=== PATIENT | female | born 1980 | race Caucasian/White ===

== ENCOUNTER → 2017-08-11 | Outpatient (CLI) | payer BC ==
[~2017-08-11] MED LIST: ACET1TAB43 PO; HYDR-3720 PO; IBP800T PO; IBUP-1773 PO; PREN1TAB39 PO
--- NOTE | 2017-08-11 16:34 | Diagnostic Imaging Report ---
INDICATION: survey. TECHNIQUE: Multiple real-time grayscale images were obtained over the gravid uterus. COMPARISON: None FINDINGS: There is a single live fetus in a cephalic presentation. Cervical length is 4.5 cm. The placenta is posterior. heart rate was recorded at 147 beats per minute. The amniotic fluid volume is normal. survey demonstrates kidneys and stomach to be unremarkable. The bladder was not well seen on today's study. brain is unremarkable. There is a four-chamber heart. The spine is unremarkable. Cord insertion is unremarkable. Three-vessel cord was not well seen. Biometrical measurements are as follows: Biparietal 4.63 cm, age 20 weeks 0 days. Head circumference 16.96 cm, age 19 weeks 5 days. Abdominal circumference 14.61 cm, age 20 weeks 0 days. Femur length 2.94 cm, age 19 weeks 1 days. Sonographic estimate age: 19 weeks 5 days. Sonographic estimated date of delivery: 12/31/2017. Estimated Weight: 298 gm (+/- 44 gm). LMP percentile: 22%. heart rate: 147 beats per minute. number: 1 of 1. IMPRESSION: Single live IUP at 19 weeks 5 days gestational age. The estimated date of confinement sonographically is 12/31/2017. Note is made that the bladder and three-vessel cord were not well seen on today's study and followup could be performed. Dictated by: Dictated on workstation # [id number]
== END ==
LOC: RAD 15:40
PROVIDERS: ATTEND Obstetrics & Gynecology
DX: Z36.89 Encounter for other specified antenatal screening (principal); Z3A.19 19 weeks gestation of pregnancy
CPT/HCPCS: 76805

== ENCOUNTER 2017-12-25 08:25 | Inpatient (IN) | payer BC ==
[~2017-12-25] VITALS: Ht 167.6 cm; Wt 77.7 kg
[2017-12-25] VITALS (37 sets, daily range): BP systolic 92–144; BP diastolic 57–86
[2017-12-25] MEDS ORDERED: D5 LR IV SOLUTION 1,000 ML IV SCH (08:59)
[2017-12-25] MEDS ORDERED: MINERAL OIL CONCENTRATE 99.9% 15 ML UDC TOP PRN (09:00)
--- OUTSIDE RECORDS SUMMARY | 2017-12-25 09:00 | XMS REPORT ---
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 Name Role Phone HERNANDEZKIMBER MorganELE Unavailable PROBLEMS Unknown Problems ALLERGIES No Known Allergies ENCOUNTERS Encounter Location Date Diagnosis [facility] [address] [facility] [id number] [place] [address] Oct, Acute nonseasonal allergic rhinitis due to pollen J30.1 IMMUNIZATIONS Vaccine Route Administration Date Status DEXAMETHASONE 4MG/ML (PER 1 MG) IM Intramuscular Nov 01, 2016 Administered DEPO MEDROL 40 MG/ML IM Intramuscular Nov 01, 2016 Administered SOCIAL HISTORY Never Assessed REASON FOR VISIT cough, sinus drainage, sinus pressure. been sick for 3 days. [email or web address] PLAN OF CARE Activity Details Follow Up prn Reason: VITAL SIGNS Height 66 in 2016-11-01 Weight 133.4 lbs 2016-11-01 Temperature 98.0 degrees Fahrenheit 2016-11-01 Heart Rate 78 bpm 2016-11-01 Respiratory Rate 20 2016-11-01 BMI 21.53 kg/m2 2016-11-01 Blood pressure systolic 118 mmHg 2016-11-01 Blood pressure diastolic 74 mmHg 2016-11-01 MEDICATIONS Medication Instructions Dosage Frequency Start Date End Date Duration Status Fluticasone Propionate 50 MCG/ACT Nasally Once a day 1 spray in each nostril 24h Oct, 30 day(s) Active Cetirizine HCl 10 MG Orally Once a day 1 tablet 24h Active Ibuprofen 600 MG Orally Three times a day 1 tablet with food or milk 8h Active RESULTS No Results PROCEDURES Procedure Date Ordered Result Body Site DEPO MEDROL 40 MG/ML Nov 01, 2016 DEXAMETHASONE 4MG/ML (PER 1 MG) Nov 01, 2016 THER/PROPH/DIAG INJ, SC/IM Nov 01, 2016 INSTRUCTIONS MEDICATIONS ADMINISTERED No Known Medications
[2017-12-25 09:26] LABS: BASOPHILS % (AUTO) 0 % (0-10); EOSINOPHILS # (AUTO) 0.1 10^3/uL (0.0-0.3); EOSINOPHILS % (AUTO) 1 % (0-10); HEMATOCRIT 36 % (35-52); HEMOGLOBIN 12.4 G/DL (11.5-16.0); LYMPHOCYTES # (AUTO) 2.4 X 10^3 (1.0-4.0); LYMPHOCYTES % (AUTO) 24 % (12-44); MEAN CORPUSCULAR HEMOGLOBIN 30 PG (25-34); MEAN CORPUSCULAR HGB CONC 34 G/DL (32-36); MEAN CORPUSCULAR VOLUME 88 FL (80-99); MEAN PLATELET VOLUME 10.5 FL (7.4-10.4); MONOCYTES # (AUTO) 0.7 X 10^3 (0.0-1.0); MONOCYTES % (AUTO) 7 % (0-12); NEUTROPHILS # (AUTO) 6.7 X 10^3 (1.8-7.8); NEUTROPHILS % (AUTO) 68 % (42-75); PLATELET COUNT 204 10^3/uL (130-400); RED BLOOD COUNT 4.11 10^6/uL (4.35-5.85); WHITE BLOOD COUNT 9.9 10^3/uL (4.3-11.0)
[2017-12-25] MEDS ORDERED: FLU QUADRIvalent (5+ YOA) 2018-2019 (AFLURIA) 0.5 ML IM ONE (10:15)
[2017-12-25] MEDS ORDERED: SUFENTA 0.6MCG/ML BUPIVA 0.125 100 ML ONE (11:40)
[2017-12-25] MEDS ORDERED: LIDOCAINE PF 2% 5 ML (XYLOCAINE) VIAL ONE (12:16)
[2017-12-25] MEDS ORDERED: BUPIVACAINE 0.5% 30 ML (SENSORCAINE) VIAL ONE (12:17)
[2017-12-25] MEDS ORDERED: fentaNYL INJECTION 100 MCG/2 ML AMP ONE (12:17)
[2017-12-25] MEDS ORDERED: LACTATED RINGERS 1,000 ML IV ONE (12:57)
[2017-12-25] MEDS ORDERED: CATHETER FLUSH 10 ML SYR IV PRN (13:00)
[2017-12-25] MEDS ORDERED: ONDANSETRON 4 MG/2 ML (SDV) Z0FRAN IV PRN (13:00)
[2017-12-25] MEDS ORDERED: diphenhydrAMINE 50 MG/ML INJ (BENADRYL) IV PRN (13:00)
[2017-12-25] MEDS ORDERED: EPIDURAL (SUFENTA 0.6MCG/ML BUPIVA 0.125%) 100 ML BAG EPI SCH (13:00)
[2017-12-25] MEDS ORDERED: NALOXONE 0.4 MG/ML 1 ML (NARCAN) VIAL IV PRN (13:00)
[2017-12-25] MEDS ORDERED: CALCIUM CARBONATE 500 MG (TUMS) TAB.CHEW PO PRN (14:00)
[2017-12-25] MEDS ORDERED: CATHETER FLUSH 10 ML SYR IV SCH ×2 (14:00→22:00)
[2017-12-25] MEDS ORDERED: LIDOCAINE/EPI 2% 1:200,00 (XYLOCAINE) 10 ML VIAL ONE (14:52)
[2017-12-25] MEDS ORDERED: OXYTOCIN/NORMAL SALINE 500 ML IV ONE (15:08)
[2017-12-25] MEDS ORDERED: OXYTOCIN/NORMAL SALINE 500 ML IV SCH (17:03)
[2017-12-25] MEDS ORDERED: ACETAMINOPHEN 500 MG TAB (TYLENOL) PO PRN (17:15)
[2017-12-25] MEDS ORDERED: BENZOCAINE/MENTHOL (DERMOPLAST) 56 ML CAN TP PRN (17:15)
[2017-12-25] MEDS ORDERED: WITCH HAZEL(TUCKS) 40 EA JAR TOP PRN (17:15)
[2017-12-25] MEDS ORDERED: MEASLES,MUMPS,RUBELLA 1 EA INJ SQ ONE (17:15)
[2017-12-25] MEDS ORDERED: TETANUS,DIPTH,PERTUSS P/F (BOOSTRIX) 0.5 ML VIAL IM ONE (17:15)
--- NOTE | 2017-12-25 17:16 | OB Labor & Delivery Record ---
Vag Delivery Note Vag Delivery Note Date of Delivery: 12/25/17 Preoperative Diagnosis: Cynthia San is a 37 /Para 5 /3 , Gestational Age 39 3/7 weeks for social induction Postoperative Diagnosis: Same Surgeon: STEFANIE DE Anesthesia: epidural Delivery Type: Findings: Viable female , apgars 8/9, weight 6#15oz Lacerations: superficial abrasion Intact placenta with 3 vessel cord. No nuchal cord, body cord or shoulder dystocia Estimated Blood Loss: 100 ml Complications: None Condition: Stable Description of Procedure: The patient is a 37 /Para 5 /3 ,Gestational Age 39 3/7 weeks for social induction. She was admitted and informed consent was obtained. Her labor course was remarkable for [AROM. She progressed to complete dilatation and began to push. She was then set up for delivery. The infant's head was delivered atraumatically in the DIOR with compound hand position. The shoulders and remainder of the infant's body were then delivered without difficulty. Upon delivery, the head was held below the level of the perineum and the mouth and nares were bulb suctioned. The cord was doubly clamped and cut and the was handed off to the pediatric staff. An intact placenta with 3-vessel cord delivered via [place] and there was found to be minimal bleeding.~ Vigorous fundal massage was performed and the fundus was found to be firm. IV oxytocin was given. Examination of the vagina and perineum revealed no laceration. Following the delivery, sponge, instrument and needle counts were correct. Mom and baby were both in stable condition in the labor suite. Vitals - Labs Vital Signs - I&O Vital Signs Date Time Temp Pulse Resp B/P (MAP) Pulse Ox O2 Delivery O2 Flow Rate FiO2 12/25/17 15:30 63 121/75 (90) Room Air 12/25/17 15:15 64 116/61 (79) Room Air 12/25/17 15:00 98.1 64 129/76 (93) Room Air 12/25/17 14:45 68 18 138/75 (96) Room Air 12/25/17 14:30 59 121/69 (86) Room Air 12/25/17 14:15 70 124/71 (88) Room Air 12/25/17 14:00 60 117/69 (85) Room Air 9/28/18 13:45 60 111/64 (80) Room Air 12/25/17 13:30 57 110/65 (80) Room Air 12/25/17 13:15 97.9 59 16 114/65 (81) Room Air 12/25/17 13:00 62 116/69 (85) Room Air 12/25/17 12:45 64 138/59 (85) 97 Room Air 12/25/17 12:30 70 144/72 (96) Room Air 12/25/17 12:00 64 16 119/73 (88) Room Air 12/25/17 11:30 66 115/73 (87) Room Air 12/25/17 11:00 98.3 69 112/70 (84) Room Air 12/25/17 10:30 62 120/77 (91) Room Air 12/25/17 08:40 98.0 67 122/73 (89) 97 Room Air Labs Laboratory Tests 12/25/17 09:00: White Blood Count 9.9, Red Blood Count 4.11L, Hemoglobin 12.4, Hematocrit 36, Mean Corpuscular Volume 88, Mean Corpuscular Hemoglobin 30, Mean Corpuscular Hemoglobin Concent 34, Red Cell Distribution Width 13.0, Platelet Count 204, Mean Platelet Volume 10.5H, Neutrophils (%) (Auto) 68, Lymphocytes (%) (Auto) 24 , Monocytes (%) (Auto) 7, Eosinophils (%) (Auto) 1, Basophils (%) (Auto) 0, Neutrophils # (Auto) 6.7, Lymphocytes # (Auto) 2.4, Monocytes # (Auto) 0.7, Eosinophils # (Auto) 0.1, Basophils # (Auto) 0.0 STEFANIE DE DO Dec 25, 2017 17:16
[2017-12-25] MEDS: IBUPROFEN 600 MG (MOTRIN) TAB PO SCH ×2 (18:15→23:22)
[2017-12-25] MEDS: DOCUSATE SODIUM 100 MG (COLACE) CAP PO SCH (20:26)
[2017-12-26 03:24] VITALS: BP 104/61
[2017-12-26 03:44] VITALS: BP 90/55
[2017-12-26 05:53] LABS: BASOPHILS % (AUTO) 0 % (0-10); EOSINOPHILS # (AUTO) 0.1 10^3/uL (0.0-0.3); EOSINOPHILS % (AUTO) 1 % (0-10); HEMATOCRIT 39 % (35-52); HEMOGLOBIN 13.1 G/DL (11.5-16.0); LYMPHOCYTES # (AUTO) 3.2 X 10^3 (1.0-4.0); LYMPHOCYTES % (AUTO) 24 % (12-44); MEAN CORPUSCULAR HEMOGLOBIN 29 PG (25-34); MEAN CORPUSCULAR HGB CONC 33 G/DL (32-36); MEAN CORPUSCULAR VOLUME 88 FL (80-99); MEAN PLATELET VOLUME 10.1 FL (7.4-10.4); MONOCYTES # (AUTO) 1.1 X 10^3 (0.0-1.0); MONOCYTES % (AUTO) 9 % (0-12); NEUTROPHILS # (AUTO) 8.7 X 10^3 (1.8-7.8); NEUTROPHILS % (AUTO) 67 % (42-75); PLATELET COUNT 215 10^3/uL (130-400); RED BLOOD COUNT 4.47 10^6/uL (4.35-5.85); RED CELL DISTRIBUTION WIDTH 13.3 % (10.0-14.5); WHITE BLOOD COUNT 13.1 10^3/uL (4.3-11.0)
[2017-12-26] MEDS: IBUPROFEN 600 MG (MOTRIN) TAB PO SCH ×3 (06:17→19:39)
[2017-12-26 08:25] VITALS: BP 105/68
[2017-12-26] MEDS: PRENATAL VITAMIN 1 EA TAB PO SCH (08:25)
[2017-12-26] MEDS: DOCUSATE SODIUM 100 MG (COLACE) CAP PO SCH ×2 (08:25→20:01)
[2017-12-26] MEDS: FERROUS SULF 325 MG (IRON) TAB PO SCH (08:25)
[2017-12-26 12:15] VITALS: BP 118/83
--- NOTE | 2017-12-26 17:19 | Anesthesia-Regional Post-Op ---
Regional Patient Condition Mental Status: Alert, Oriented x3 Circulation: Same as Pre-Op Headache: Absent Sensation: Full Recovery Motor Block: Absent Post Op Complications Complications None Follow Up Care/Instructions Patient Instructions None needed. Anesthesia/Patient Condition Patient is doing well, no complaints, stable vital signs, no apparent adverse anesthesia problems. No complications reported per nursing. NÉSTOR RODRÍGUEZ CRNA Dec 26, 2017 17:19
[2017-12-26] MEDS ORDERED: IBUP-1773 PO (17:51)
[2017-12-26] MEDS ORDERED: ACET-77 PO (17:51)
--- NOTE | 2017-12-26 17:52 | Discharge Inst-Women's Service ---
Discharge Inst-Women's Serv Depart Medication/Instructions New, Converted or Re-Newed RX: RX on Chart Final Diagnosis 39 week vaginal delivery epidural Consults/Follow Up Additional Follow Up: Yes (6 week post exam) Activity Activity: Activity as Tolerated Driving Instructions: You May Drive NO SMOKING: NO SMOKING Nothing Inside Vagina: No Douching, No Dix, No Tampons Diet Discharge Diet: No Restrictions Symptoms to Report to : Swelling Increased, Bleeding Excessive, Fever Over 101 Degrees F, Vaginal Bleeding Increase, Cramps in Feet or Legs, Vaginal Discharge Foul For Any Problems or Questions: Contact Your Physician STEFANIE DE DO Dec 26, 2017 17:52
[2017-12-26 19:36] VITALS: BP 113/75
[2017-12-27 01:31] VITALS: BP 95/61
[2017-12-27] MEDS: IBUPROFEN 600 MG (MOTRIN) TAB PO SCH ×2 (01:37→11:13)
[2017-12-27] MEDS: FERROUS SULF 325 MG (IRON) TAB PO SCH (11:12)
[2017-12-27] MEDS: DOCUSATE SODIUM 100 MG (COLACE) CAP PO SCH (11:13)
[2017-12-27] MEDS: PRENATAL VITAMIN 1 EA TAB PO SCH (11:13)
[2017-12-27 11:15] VITALS: BP 119/73
--- NOTE | 2017-12-27 12:55 | Postpartum Progress Note ---
Note Note Late entry - seen and examined on 12/26/17 at 0830 Day # 1 Subjective: Patient is without complaints. Ambulating, voiding. Tolerating a regular diet without nausea or vomiting. Normal lochia. Pain is well controlled with oral pain medications. []Breast feeding. Baby with facial bruising so will not be discahrged to home. Objective: Laboratory Tests Test 12/25/17 09:00 12/26/17 05:43 Range/Units White Blood Count 9.9 13.1 H 4.3-11.0 10^3/uL Red Blood Count 4.11 L 4.47 4.35-5.85 10^6/uL Hemoglobin 12.4 13.1 11.5-16.0 G/DL Hematocrit 36 39 35-52 % Mean Corpuscular Volume 88 88 80-99 FL Mean Corpuscular Hemoglobin 30 29 25-34 PG Mean Corpuscular Hemoglobin Concent 34 33 32-36 G/DL Red Cell Distribution Width 13.0 13.3 10.0-14.5 % Platelet Count 204 215 130-400 10^3/uL Mean Platelet Volume 10.5 H 10.1 7.4-10.4 FL Neutrophils (%) (Auto) 68 67 42-75 % Lymphocytes (%) (Auto) 24 24 12-44 % Monocytes (%) (Auto) 7 9 0-12 % Eosinophils (%) (Auto) 1 1 0-10 % Basophils (%) (Auto) 0 0 0-10 % Neutrophils # (Auto) 6.7 8.7 H 1.8-7.8 X 10^3 Lymphocytes # (Auto) 2.4 3.2 1.0-4.0 X 10^3 Monocytes # (Auto) 0.7 1.1 H 0.0-1.0 X 10^3 Eosinophils # (Auto) 0.1 0.1 0.0-0.3 10^3/uL Basophils # (Auto) 0.0 0.0 0.0-0.1 10^3/uL Physical Exam: General - Alert and oriented, no apparent distress Abdomen - Soft, appropriately tender to palpation, non-distended, fundus firm at umbilicus Extremities - no edema, negative Alfredo's bilaterally Assessment: 1. post- day # 1, status post vaginal delivery. Recovering well, hemodynamically stable Plan: Routine care. Encourage breast feeding. Encourage ambulation. Vitals - Labs Vital Signs - I&O Vital Signs Date Time Temp Pulse Resp B/P (MAP) Pulse Ox O2 Delivery O2 Flow Rate FiO2 12/27/17 01:31 97.0 72 20 95/61 (72) Room Air 12/26/17 19:36 97.6 66 20 113/75 (88) Room Air STEFANIE DE DO Dec 27, 2017 12:55
--- NOTE | 2017-12-27 13:02 | Postpartum Progress Note ---
Note Note Day # 2 s/p Subjective: Patient is without complaints. Ambulating, voiding. Tolerating a regular diet without nausea or vomiting. Normal lochia. Pain is well controlled with oral pain medications. Objective: 12/27/17 01:31 Temp 97.0 Pulse 72 Resp 20 B/P (MAP) 95/61 (72) O2 Delivery Room Air Physical Exam: General - Alert and oriented, no apparent distress Abdomen - Soft, appropriately tender to palpation, non-distended, fundus firm at umbilicus Extremities - no edema, negative Alfredo's bilaterally Assessment: 1 post- day # 2, status post [vaginal delivery. Recovering well, hemodynamically stable Plan: Routine care. Encourage breast feeding. Encourage ambulation. Ferrous sulfate supplementation. Plan for discharge today Vitals - Labs Vital Signs - I&O Vital Signs Date Time Temp Pulse Resp B/P (MAP) Pulse Ox O2 Delivery O2 Flow Rate FiO2 12/27/17 01:31 97.0 72 20 95/61 (72) Room Air 12/26/17 19:36 97.6 66 20 113/75 (88) Room Air STEFANIE DE DO Dec 27, 2017 13:02
== END 2017-12-27 14:45 | disposition home or self-care (01) | DRG 775 ==
LOC: LDRP 08:25
PROVIDERS: ADMIT Obstetrics & Gynecology; ATTEND Obstetrics & Gynecology
PROC: 10E0XZZ Delivery of Products of Conception, External Approach (ICD-10-PCS; principal; 2017-12-25)
PROC: 3E033VJ Introduction of Other Hormone into Peripheral Vein, Percutaneous Approach (ICD-10-PCS; 2017-12-25)
DX: O32.6XX0 Maternal care for compound presentation, not applicable or unspecified (principal); Z37.0 Single live birth; Z3A.39 39 weeks gestation of pregnancy
CPT/HCPCS: 36415; 85025; 86850; 86900; 86901; 90686; 90715